=== PATIENT | female | born 1970 | race Caucasian/White ===

== ENCOUNTER 2019-07-03 10:42 | Day surgery (SDC) | payer OTHER ==
[2019-07-02 09:13] VITALS: BMI 30.1
[~2019-07-03 10:42] MED LIST: LACTATED RINGERS 1,000 ML IV SCH
[2019-07-03 11:16] VITALS: TEMP 97.4
[2019-07-03] MEDS ORDERED: LIDOCAINE 1% 20 ML VIAL (10MG/ML) FOR IV START INTRAPLEUR ONE (11:20)
[2019-07-03] MEDS ORDERED: PROPOFOL 10 MG/ML 20 ML VIAL IV ONE (11:55)
[2019-07-03] MEDS ORDERED: LIDOCAINE 1% INJ 10MG/ML (20 ML MDV) ONE (11:55)
--- NOTE | 2019-07-03 12:11 | P.PCN ---
Date of Procedure: 07/03/19 Description of Procedure: BRIEF HISTORY: Patient is a 48-year-old female who presents for outpatient esophagogastroduodenoscopy for evaluation of epigastric abdominal pain and dysphagia. Patient reports development of epigastric abdominal pain and subsequently difficulty swallowing. Difficult to predominantly to dry foods such as breads. Overall symptoms are somewhat improved. PROCEDURE PERFORMED: Esophagogastroduodenoscopy with biopsy. PREOPERATIVE DIAGNOSIS: Dysphagia, epigastric abdominal pain. ESTIMATED BLOOD LOSS: Minimal. IV sedation per anesthesia. PROCEDURE: After informed consent was obtained, the patient was brought into the endoscopy unit. IV sedation was administered by Anesthesia under continuous monitoring. Initially the Olympus GIF-190 video endoscope was inserted into the mouth. Esophagus intubated without any difficulty. It was gradually advanced into the stomach and duodenum and carefully examined. The bulb and the second part of the duodenum appeared normal, with biopsies taken to rule out celiac sprue. The scope at this time was withdrawn to the stomach, adequately insufflated with air, and upon careful examination, mucosa of the antrum, body, cardia and the fundus appeared . The grossly normal except for some mild scattered erythema in the body suggestive of mild gastritis with biopsies taken. The scope was then withdrawn into the esophagus. The GE junction was located at 36 cm from the incisors. The esophagus appeared normal, with mid esophageal biopsies taken in the setting of dysphagia . There were no erosions or ulcerations seen and the patient tolerated the procedure well. IMPRESSION: 1. Mild gastritis antrum body, biopsied. 2. Biopsies of the duodenum and midesophagus. RECOMMENDATIONS: The findings of this examination were discussed with the patient and her . Okay to resume diet. Okay to resume medications. Await pathology from biopsies..
[2019-07-03 12:36] VITALS: BP 126/87; PULSE 74; RESP 20
== END 2019-07-03 12:42 | disposition home or self-care (01) ==
LOC: ORWHC2ENDO 10:42
PROVIDERS: ATTEND Internal Medicine
DX: K29.50 Unspecified chronic gastritis without bleeding (principal); K20.9 Esophagitis, unspecified; F17.210 Nicotine dependence, cigarettes, uncomplicated; Z79.899 Other long term (current) drug therapy; Z88.8 Allergy status to other drugs, medicaments and biological substances; Z98.890 Other specified postprocedural states; Z98.51 Tubal ligation status
CPT/HCPCS: 81025; 88305; 43239; J2001; J2704